=== PATIENT | female | born 1980 | race Caucasian/White ===

== ENCOUNTER 2017-05-18 09:00 | Emergency (ER) | payer SELFPAY ==
[2017-05-18] MEDS ORDERED: Gentamicin Ophth 0.3% Oint 3.5gm Tube ONE (09:19)
[2017-05-18] MEDS ORDERED: Gentamicin 0.3% Ophth Soln 5mL Bottle LEFT EYE SCH (09:30)
--- NOTE | 2017-05-18 11:33 | ER Physician Documentation ---
DATE OF SERVICE: 05/18/2017 HISTORY OF PRESENT ILLNESS: A 36-year-old female patient who came here who was born on 1980. Her parents are in [place]. She went to the [employer] shop and she fall asleep in the donut place and they called the police and police advised her that they could help to go to the [facility] or go to the hospital. The patient has elected to go to the hospital. Therefore she was brought here. HISTORY OF PRESENT ILLNESS: The patient is a very poor historian. Most of the words starts with "f" and the patient is complaining of pain in the left eye. She has a left eye conjunctivitis. Right eye, no conjunctivitis. Other complaint she has is that she has breast cancer on the right side. She took chemotherapy for some time and then she quit chemotherapy. She says she has kidney stones. Other than these 3, she does not have any other review of present illness and system review is negative. SOCIAL HISTORY: She denies smoking, drinking alcohol, or smoking marijuana, weeds or any other kind of any other complaints. She does not take any alcoholic beverage use, methamphetamine, cocaine, heroin, narcotics, etc. PAST HISTORY: Negative according to her. She is not a psych patient. She has never been in the Psychiatric institution. FAMILY HISTORY: Negative. REVIEW OF SYSTEMS: CARDIOVASCULAR: Essentially cardiac molina, no chest pain, no myocardial infarction, no rheumatic fever. No valvular heart disease. PULMONARY: No pneumonia, no TB, no pulmonary embolism. No COPD, emphysema, or bronchitis. GASTROINTESTINAL: No diarrhea, no constipation, no vomiting. GENITOURINARY: No burning, frequency, dysuria. History of kidney stones in the past. EYES: Conjunctivitis present. EAR, NOSE, and THROAT: Benign and negative. There is no fever, no chills, no rigors . BONES AND JOINTS: No apparent complaints. A 12-point review of systems in general essentially benign and a negative. PHYSICAL EXAMINATION: GENERAL: Examination showed that patient is very rude, most of the word starts with "f" and the patient has a left eye conjunctivitis. Right eye is okay. She has short cut hair mostly black, colored or not, could not say. No edema, no cyanosis, no petechia, no ecchymosis, motta. No meningeal signs. CHEST: Clear. Trachea being central. Fairly good air entry in both lungs. HEART: Reveals normal heart sounds. No fourth heart sound. Second heart sound is physiologically split. BREASTS:. Limited examination of the right breast only, she allows me to feel that lump just for a few seconds. Shows that there is a lump approximately 2 or 2-1/2 inches in size, nontender lump which is there. The left breast was not examined, she did not allow. ABDOMEN: Soft, benign, negative. CENTRAL NERVOUS SYSTEM: Within normal limits in gross examination. She does not want any blood workup or anything. She just wants her eyes to be taken care of and then she wants to go away. If she wants to go away, she has to sign against medical advice and go away because she does not follow up the doctors' orders and she does not want any labs or any other test to be done. FINAL DIAGNOSIS: The patient woke up from the donut's place where she slept on the table. According to her, she has a house and she lives in an apartment and she works on [employer], she says. OTHER DIAGNOSES: Include; 1. Right breast cancer. Left breast, no cancer according to her. 2. Conjunctivitis in the left eye. 3. History of kidney stone in the past. 4. Denying any and all kinds of drug abuse. 5. Very bad behavior and words which are not generally spoken. We have given the patient Cipro eyedrops to be taken as an outpatient. Here we have gentamicin drops, so we will give her gentamicin. JOB# [id number]
== END 2017-05-18 09:25 | disposition left against medical advice (07) ==
LOC: ER 09:00
DX: C50.911 Malignant neoplasm of unspecified site of right female breast (principal); H10.89 Other conjunctivitis
CPT/HCPCS: Z7502